=== PATIENT | male | born 1950 | race Caucasian/White ===

== ENCOUNTER 2017-11-23 13:40 | Emergency (ER) | payer OTHER, SELFPAY ==
[2017-11-23 14:16] VITALS: BP 133/71; PULSE 59; RESP 18; TEMP 36.5; O2SAT 97
--- NOTE | 2017-11-23 14:23 | PC.NURSE ---
1400 called for pt, other pts in the lobby said pt had gone to the restroom.
[2017-11-23 15:31] LABS: Bacteria Urine None Seen
[2017-11-23 15:33] LABS: Appearance Urine UA CLEAR; Bilirubin Urine UA NEGATIVE (NEGATIVE); Color Urine UA YELLOW; Glucose Urine UA NEGATIVE (Normal); Ketones Urine UA NEGATIVE (NEGATIVE); Leukocyte Esterase Urine UA 2+ (NEGATIVE); Nitrite Urine UA POSITIVE (Negative); Occult Blood Urine UA 3+ (Negative); Protein Urine UA NEGATIVE (Negative); Specific Gravity Urine UA <=1.005 (1.000-1.035); Urobilinogen Urine UA 0.2 E.U./dL (0.2)
--- NOTE | 2017-11-23 15:34 | ED.MALEGU ---
HPI - Male Genitourinary <Pinky Acevedo PA-C - Last Filed: 11/23/17 22:19> General Chief complaint: Urogenital-Male Stated complaint: BLOOD IN URINE Time Seen by Provider: 11/23/17 15:19 Source: patient and family Mode of arrival: ambulatory Limitations: other (Dementia) History of Present Illness HPI Narrative: Jed is brought in by his today due to hematuria. 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 He had hematuria apparently a few months ago for about a day but this cleared on its own. Currently, he is overdue by about a week for his catheter change. His noted hematuria late yesterday and it continued today so she brought him in. She thinks it is getting a little better now. He has not been complaining of any pain. He has been behaving normally. He has not had fever at home. He has not had any vomiting and has been eating normally. He denies any pain and states he is feeling well today. Related Data Home Medications Medication Instructions Recorded Confirmed donepezil 10 mg PO DAILY 11/23/17 11/23/17 risperidone 0.25 mg PO QAM 11/23/17 11/23/17 risperidone 0.5 mg PO BEDTIME 11/23/17 11/23/17 Allergies Allergy/AdvReac Type Severity Reaction Status Date / Time No Known Allergies Allergy Uncoded 11/23/17 14:24 Exam <Pinky Acevedo PA-C - Last Filed: 11/23/17 22:19> Narrative Exam Narrative: GENERAL APPEARANCE: Patient sitting comfortably, in no distress. LUNGS: Clear to auscultation bilaterally. HEART: Rate and rhythm regular without murmur, normal S1 and S2, no S3 or S4. ABDOMEN: Soft, NT, ND, +BS x 4 quadrants, no CVAT. EXTREMITIES: No edema or calf tenderness NEUROLOGIC: Pleasantly confused : Fernandez draining bloody urine, no clots noted. Appears to be clearing after fernandez replacement Initial Vital Signs Initial Vital Signs: Vital Signs Temperature 97.7 F 11/23/17 14:16 Pulse Rate 59 L 11/23/17 14:16 Respiratory Rate 18 11/23/17 14:16 Blood Pressure 133/71 H 11/23/17 14:16 Pulse Oximetry 97 11/23/17 14:16 <Walter Saenz MD - Last Filed: 12/20/17 18:19> Initial Vital Signs Initial Vital Signs: Vital Signs Temperature 97.7 F 11/23/17 14:16 Pulse Rate 59 L 11/23/17 14:16 Respiratory Rate 18 11/23/17 14:16 Blood Pressure 133/71 H 11/23/17 14:16 Pulse Oximetry 97 11/23/17 14:16 Course <Pinky Acevedo PA-C - Last Filed: 11/23/17 22:19> Additional Information: Patient has a benign exam today and has been behaving normally. He has had hematuria in the past and this could be associated with minor catheter trauma but this appears to be lasting a bit longer. He does have a positive urinalysis as would be expected. Given a prescription for Bactrim, culture is pending. His agrees to have him return to the ED if any new symptoms such as fever, vomiting, or pain while cultures are pending. Orders Ordered: ED Orders 11/23/17 15:20 Urinalysis and Microscopic Stat Urine Culture Stat Vital Signs - 8 hr 11/23/17 14:16 11/23/17 15:38 Temperature 97.7 F 98.2 F Pulse Rate 59 L 57 L Respiratory Rate 18 18 Blood Pressure 133/71 H Blood Pressure [Right Arm] 134/66 H Pulse Oximetry 97 98 <Walter Saenz MD - Last Filed: 12/20/17 18:19> Orders Ordered: ED Orders 11/23/17 15:20 Urinalysis and Microscopic Stat Urine Culture Stat Vital Signs - 8 hr 11/23/17 14:16 11/23/17 15:38 Temperature 97.7 F 98.2 F Pulse Rate 59 L 57 L Respiratory Rate 18 18 Blood Pressure 133/71 H Blood Pressure [Right Arm] 134/66 H Pulse Oximetry 97 98 MDM - Male Genitourinary <Pinky Acevedo PA-C - Last Filed: 11/23/17 22:19> Lab Data Attestation: I reviewed the patient's lab results. Lab Results 11/23/17 Range/Units 15:20 Urine Color Yellow Urine Appearance Clear Urine pH 5.0 (4.5-8.0) Ur Specific [place] <=1.005 (1.000-1.035) Urine Protein Negative (Negative) Urine Glucose (UA) Negative (Normal) g/dL Urine Ketones Negative (NEGATIVE) Urine Occult Blood 3+ H (Negative) Urine Nitrate Positive (Negative) Urine Bilirubin Negative (NEGATIVE) Urine Urobilinogen 0.2 (0.2) E.U./dL Ur Leukocyte Esterase 2+ H (NEGATIVE) Urine RBC 5-10/hpf H (0-5/HPF) Urine WBC 5-10/hpf H (0-5/HPF) Amorphous Sediment 3+ Urine Bacteria None seen (None) Ur Culture Indicated? Specimen cultured Micro UA Comment Not Reportable <Walter Saenz MD - Last Filed: 12/20/17 18:19> Lab Data Lab Results 11/23/17 Range/Units 15:20 Urine Color Yellow Urine Appearance Clear Urine pH 5.0 (4.5-8.0) Ur Specific [place] <=1.005 (1.000-1.035) Urine Protein Negative (Negative) Urine Glucose (UA) Negative (Normal) g/dL Urine Ketones Negative (NEGATIVE) Urine Occult Blood 3+ H (Negative) Urine Nitrate Positive (Negative) Urine Bilirubin Negative (NEGATIVE) Urine Urobilinogen 0.2 (0.2) E.U./dL Ur Leukocyte Esterase 2+ H (NEGATIVE) Urine RBC 5-10/hpf H (0-5/HPF) Urine WBC 5-10/hpf H (0-5/HPF) Amorphous Sediment 3+ Urine Bacteria None seen (None) Ur Culture Indicated? Specimen cultured Micro UA Comment Not Reportable Discharge Plan Departure Patient Disposition: Home Clinical Impression: Hematuria, Urinary catheter (Fernandez) change required, UTI (urinary tract infection) Discharge Date/Time: 11/23/17 16:48 Interventions: ED Discharge Assessment Last Done: 11/23/17 16:44 Instructions: DI for Urinary Tract Infection (UTI) Activity Restrictions/Additional Instructions: Return as we talked about if any acutely worsening symptoms over the weekend. Otherwise, as we discussed, this bleeding might be due to an infection based on her urinalysis results, so I have sent an antibiotic to your pharmacy for you to start on while cultures are pending. Prescriptions: No Action donepezil 10 mg Tablet 10 mg PO DAILY RF: 0 risperidone 0.5 mg Tablet 0.25 mg PO QAM RF: 0 risperidone 0.5 mg Tablet 0.5 mg PO BEDTIME RF: 0 Referrals: [facility], [place] [Other] <Walter Saenz MD - Last Filed: 12/20/17 18:19> Cosign ED Attending Cosronature Attestation: I was present in the ER at the time of this patient's care. I was available for verbal consultation, or to see the patient directly if needed. I agree with the assessment, and care plan.
[2017-11-23 15:38] VITALS: BP 134/66; PULSE 57; RESP 18; TEMP 36.8; O2SAT 98
[2017-11-23 15:52] LABS: RBC Urine 5-10/HPF (0-5/HPF)
[2017-11-23 15:53] LABS: Amorphous Sediment Urine 3+; Culture Indicated Urine Specimen Cultured; WBC Urine 5-10/HPF (0-5/HPF)
== END 2017-11-23 16:48 | disposition home or self-care (01) ==
PROVIDERS: Emergency Provider Internal Medicine
DX: N39.0 Urinary tract infection, site not specified (principal); R31.9 Hematuria, unspecified; Z46.6 Encounter for fitting and adjustment of urinary device
CPT/HCPCS: 51701; 51705; 81001; 87077; 87086; 87186; 99283